=== PATIENT | female | born 1975 | race Caucasian/White ===

== ENCOUNTER 2017-05-09 12:09 | Emergency (ER) | payer BC ==
--- NOTE | 2017-05-09 13:02 | Emergency Department Record ---
History of Present Illness - General Chief complaint: ENT Stated complaint: LUMP IN THROAT,DIZZINESS Time Seen by Provider: 05/09/17 12:35 Source: Patient, RN notes reviewed Mode of Arrival: Ambulatory - History of Present Illness Initial comments: face swelling on the right side of face, Sunday laughing alot and soreness by the angle of mandible and swelling started sunday and whenever she eats it swells up. Onset/Timin -: Days(s) Location: Throat Consistency: Intermittent Worsens with: Eating - Related Data Home Medications Medication Instructions Recorded Confirmed Last Taken Lisdexamfetamine Dimesylate 50 mg PO DAILY 05/13/15 05/09/17 05/09/17 [Vyvanse] Metoprolol Tartrate [Lopressor] 25 mg PO Q12H 05/13/15 05/09/17 05/09/17 Sertraline HCl [Zoloft] 50 mg PO BID 05/13/15 05/09/17 05/09/17 Zolpidem Tartrate [Ambien] 5 mg PO QHS 05/13/15 05/09/17 05/08/17 Estradiol 1 patch TOP WEEKLY #12 06/13/16 05/09/17 05/09/17 Cetirizine HCl [Zyrtec] 10 mg PO DAILY 05/09/17 05/09/17 05/09/17 Cholecalciferol (Vitamin D3) 5,000 unit PO DAILY 05/09/17 05/09/17 05/09/17 [Vitamin D3] Multivitamin [Multi-Vitamin Daily] 1 each PO DAILY 05/09/17 05/09/17 05/09/17 Vitamin B Complex 1 each PO DAILY 05/09/17 05/09/17 05/09/17 Previous Rx's Medication Instructions Recorded Cephalexin [Keflex] 500 mg PO QID #40 cap 05/09/17 Allergies Allergy/AdvReac Type Severity Reaction Status Date / Time No Known Drug Allergies Allergy Verified 05/09/17 12:23 Travel Screening - Travel/Exposure Within Last 30 Days Have you traveled within the last 30 days?: No - Travel/Exposure Within Last Year Have you traveled outside the [place] in the last year?: No - Additonal Travel Details Have you been exposed to anyone with a communicable illness?: No - Travel Symptoms Symptom Screening: None Past Medical History - SOCIAL HISTORY Smoking Status: Never smoker Alcohol Use: None Drug Use: None - RESPIRATORY Hx Respiratory Disorders: Yes Hx Asthma: (as child) Comment:: seasonal allergies - CARDIOVASCULAR Hx Cardio Disorders: Yes Hx Hypertension: Yes Hx Irregular Heartbeat: Yes (A-V block) - NEURO Hx Neuro Disorders: No - GI Hx GI Disorders: No - Hx Genitourinary Disorders: Yes Comment:: Uterine fibroids; IUD in place - ENDOCRINE Hx Endocrine Disorders: No - MUSCULOSKELETAL Hx Musculoskeletal Disorders: No - PSYCH Hx Psych Problems: Yes Hx Depression: Yes Comment:: ADHD - HEMATOLOGY/ONCOLOGY Hx Hematology/Oncology Disorders: No Family Medical History Any Significant Family History?: No Hx Cancer: Grandparents Hx Dementia: Mother, Grandparents Hx Diabetes: Father Hx Heart Disease: Mother *Heart Comment: A-fib Hx HTN: Father, Mother, Grandparents Hx Stroke: Father, Mother, Grandparents Course Vital Signs 05/09/17 12:13 Temperature 98.5 F Pulse Rate 69 Respiratory 16 Rate Blood Pressure 126/79 Pulse Ox 98 Disposition Clinical Impression: Acute parotitis Disposition: Home, Self-Care Condition: (1) Good Instructions: Sialoadenitis (ED), Parotid Duct Obstruction (ED) Additional Instructions: follow up with Dr. Barton in 5-7 days drink lots of fluid use lemon drops or marbin take keflex Prescriptions: Cephalexin [Keflex] 500 mg PO QID #40 cap Forms: Patient Portal Access Time of Disposition: 13:13 Quality - Quality Measures Quality Measures: N/A - Blood Pressure Screening Does Patient Have Any of the Following: No Blood Pressure Classification: Pre-Hypertensive BP Reading Systolic Measurement: 126 Diastolic Measurement: 79 Screening for High Blood Pressure: < Pre-Hypertensive BP, F/U Documented > [ G8950] Pre-Hypertensive Follow-up Interventions: Referral to alternative/primary care provider.
--- NOTE | 2017-05-09 13:26 | Emergency Department Record ---
History of Present Illness - General Chief complaint: ENT Stated complaint: LUMP IN THROAT,DIZZINESS Time Seen by Provider: 05/09/17 12:35 Source: Patient, RN notes reviewed Mode of Arrival: Ambulatory - History of Present Illness Onset/Timin -: Days(s) Location: Throat Consistency: Intermittent Worsens with: Eating - Related Data Home Medications Medication Instructions Recorded Confirmed Last Taken Lisdexamfetamine Dimesylate 50 mg PO DAILY 05/13/15 05/09/17 05/09/17 [Vyvanse] Metoprolol Tartrate [Lopressor] 25 mg PO Q12H 05/13/15 05/09/17 05/09/17 Sertraline HCl [Zoloft] 50 mg PO BID 05/13/15 05/09/17 05/09/17 Zolpidem Tartrate [Ambien] 5 mg PO QHS 05/13/15 05/09/17 05/08/17 Estradiol 1 patch TOP WEEKLY #12 06/13/16 05/09/17 05/09/17 Cetirizine HCl [Zyrtec] 10 mg PO DAILY 05/09/17 05/09/17 05/09/17 Cholecalciferol (Vitamin D3) 5,000 unit PO DAILY 05/09/17 05/09/17 05/09/17 [Vitamin D3] Multivitamin [Multi-Vitamin Daily] 1 each PO DAILY 05/09/17 05/09/17 05/09/17 Vitamin B Complex 1 each PO DAILY 05/09/17 05/09/17 05/09/17 Previous Rx's Medication Instructions Recorded Cephalexin [Keflex] 500 mg PO QID #40 cap 05/09/17 Allergies Allergy/AdvReac Type Severity Reaction Status Date / Time No Known Drug Allergies Allergy Verified 05/09/17 12:23 Travel Screening - Travel/Exposure Within Last 30 Days Have you traveled within the last 30 days?: No - Travel/Exposure Within Last Year Have you traveled outside the [place] in the last year?: No - Additonal Travel Details Have you been exposed to anyone with a communicable illness?: No - Travel Symptoms Symptom Screening: None Review of Systems Reviewed: No additional complaints except as noted below Constitutional: Reports: As per HPI. Denies: Chills, Fever, Malaise, Night sweats, Weakness, Weight change Eyes: Reports: As per HPI. Denies: Eye discharge, Eye pain, Photophobia, Vision change ENT: Reports: As per HPI, Other (swelling right parotid gland). Denies: Congestion, Dental pain, Ear pain, Epistaxis, Hearing loss, Throat pain Respiratory: Reports: As per HPI. Denies: Cough, Dyspnea, Hemoptysis, Stridor, Wheezes Cardiovascular: Reports: As per HPI. Denies: Arrhythmia, Chest pain, Dyspnea on exertion, Edema, Murmurs, Orthopnea, Palpitations, Paroxysmal nocturnal dyspnea, Rheumatic Fever, Syncope Endocrine: Reports: As per HPI. Denies: Fatigue, Heat or cold intolerance, Polydipsia, Polyuria Gastrointestinal: Reports: As per HPI. Denies: Abdominal pain, Constipation, Diarrhea, Hematemesis, Hematochezia, Melena, Nausea, Vomiting Genitourinary: Reports: As per HPI. Denies: Abnormal menses, Discharge, Dyspareunia, Dysuria, Frequency, Hematuria, Incontinence, Retention, Urgency Musculoskeletal: Reports: As per HPI. Denies: Arthralgia, Back pain, Gout, Joint swelling, Myalgia, Neck pain Skin: Reports: As per HPI. Denies: Bruising, Change in color, Change in hair/ nails, Lesions, Pruritus, Rash Neurological: Reports: As per HPI. Denies: Abnormal gait, Confusion, Headache, Numbness, Paresthesias, Seizure, Tingling, Tremors, Vertigo, Weakness Psychiatric: Reports: As per HPI. Denies: Anxiety, Auditory hallucinations, Depression, Homicidal thoughts, Suicidal thoughts, Visual hallucinations Hematological/Lymphatic: Reports: As per HPI. Denies: Anemia, Blood Clots, Easy bleeding, Easy bruising, Swollen glands Past Medical History - SOCIAL HISTORY Smoking Status: Never smoker Alcohol Use: None Drug Use: None - RESPIRATORY Hx Respiratory Disorders: Yes Hx Asthma: (as child) Comment:: seasonal allergies - CARDIOVASCULAR Hx Cardio Disorders: Yes Hx Hypertension: Yes Hx Irregular Heartbeat: Yes (A-V block) - NEURO Hx Neuro Disorders: No - GI Hx GI Disorders: No - Hx Genitourinary Disorders: Yes Comment:: Uterine fibroids; IUD in place - ENDOCRINE Hx Endocrine Disorders: No - MUSCULOSKELETAL Hx Musculoskeletal Disorders: No - PSYCH Hx Psych Problems: Yes Hx Depression: Yes Comment:: ADHD - HEMATOLOGY/ONCOLOGY Hx Hematology/Oncology Disorders: No Family Medical History Any Significant Family History?: No Hx Cancer: Grandparents Hx Dementia: Mother, Grandparents Hx Diabetes: Father Hx Heart Disease: Mother *Heart Comment: A-fib Hx HTN: Father, Mother, Grandparents Hx Stroke: Father, Mother, Grandparents Physical Exam - General General Appearance: Alert, Oriented x3, Cooperative, No acute distress - Head Head exam: Normal inspection - Eye Eye exam: Normal appearance, PERRL Pupils: Normal accommodation - ENT ENT exam: Normal exam, Mucous membranes moist, Normal external ear exam, Normal orophraynx, TM's normal bilaterally Ear exam: Normal external inspection. negative: External canal tenderness Nasal Exam: Normal inspection. negative: Discharge, Sinus tenderness Mouth exam: Normal external inspection, Tongue normal Teeth exam: Normal inspection. negative: Dental caries Throat exam: Normal inspection. negative: Tonsillar erythema, Tonsillar exudate - Neck Neck exam: Normal inspection, Full ROM, Other (swelling of parotid gland and tender to the touch). negative: Tenderness - Respiratory Respiratory exam: Normal lung sounds bilaterally. negative: Respiratory distress - Cardiovascular Cardiovascular Exam: Regular rate, Normal rhythm, Normal heart sounds - GI/Abdominal GI/Abdominal exam: Soft, Normal bowel sounds. negative: Tenderness - Rectal Rectal exam: Deferred - exam: Deferred - Extremities Extremities exam: Normal inspection, Full ROM, Normal capillary refill. negative: Tenderness - Back Back exam: Reports: Normal inspection, Full ROM. Denies: Muscle spasm, Rash noted, Tenderness - Neurological Neurological exam: Alert, Normal gait, Oriented X3, Reflexes normal - Psychiatric Psychiatric exam: Normal affect, Normal mood - Skin Skin exam: Dry, Intact, Normal color, Warm Course Vital Signs 05/09/17 12:13 Temperature 98.5 F Pulse Rate 69 Respiratory 16 Rate Blood Pressure 126/79 Pulse Ox 98 Disposition Clinical Impression: Acute parotitis Disposition: Home, Self-Care Condition: (1) Good Instructions: Parotid Duct Obstruction (ED), Sialoadenitis (ED) Additional Instructions: follow up with Dr. Barton in 5-7 days drink lots of fluid use lemon drops or marbin take keflex Prescriptions: Cephalexin [Keflex] 500 mg PO QID #40 cap Forms: Patient Portal Access Quality - Quality Measures Quality Measures: N/A - Blood Pressure Screening Does Patient Have Any of the Following: No Blood Pressure Classification: Pre-Hypertensive BP Reading Systolic Measurement: 126 Diastolic Measurement: 79 Screening for High Blood Pressure: < Pre-Hypertensive BP, F/U Documented > [ G8950] Pre-Hypertensive Follow-up Interventions: Referral to alternative/primary care provider.
== END 2017-05-09 13:36 | disposition home or self-care (01) ==
LOC: ER 12:09
DX: K11.21 Acute sialoadenitis (principal); R42 Dizziness and giddiness
CPT/HCPCS: 99282